=== PATIENT | female | born 1955 | race Caucasian/White ===

== ENCOUNTER 2023-02-26 18:45 | Inpatient (IN) | payer MEDICARE, OTHER ==
[~2023-02-26] VITALS: Ht 167.6 cm; Wt 68.9 kg
[2023-02-26] MEDS ORDERED: TRAZ-257 PO (19:10)
[2023-02-26] MEDS ORDERED: PROP10TA10 PO (19:10)
[2023-02-26] MEDS ORDERED: MELA3TAB41 PO (19:10)
[2023-02-26] MEDS ORDERED: MINE133E RC (19:10)
[2023-02-26] MEDS ORDERED: BREX2TAB PO (19:10)
[2023-02-26] MEDS ORDERED: ACET-3117 PO (19:10)
[2023-02-26] MEDS ORDERED: BISA10SU61 RC (19:10)
[2023-02-26] MEDS ORDERED: LORA0.5T48 PO (19:10)
[2023-02-26] MEDS ORDERED: MAGN400O6 PO (19:10)
[2023-02-26] MEDS ORDERED: DIVA500T2 PO (19:10)
[2023-02-26] MEDS ORDERED: QUET25TA PO (19:10)
[2023-02-26] MEDS ORDERED: MAG30ORA PO (19:10)
[2023-02-26] MEDS ORDERED: POLY119P2 PO (19:10)
[2023-02-26] MEDS ORDERED: DIAZ2TAB PO (19:10)
[2023-02-26 19:38] LABS: BASOPHILS # (AUTO) 0.2 K/UL (0.0-0.2); BASOPHILS % (AUTO) 2.7 % (0.0-2.0); EOSINOPHILS # (AUTO) 0.2 K/uL (0.0-0.7); EOSINOPHILS % (AUTO) 2.3 % (0.0-7.0); HEMOGLOBIN 13.8 g/dL (10.9-14.3); LYMPHOCYTES # (AUTO) 2.2 K/uL (0.8-4.8); LYMPHOCYTES % (AUTO) 32.7 % (20.5-51.5); MEAN CORPUSCULAR HEMOGLOBIN 32.4 uug (24.7-32.8); MEAN CORPUSCULAR HGB CONC 34 g/dL (32.3-35.6); MONOCYTES # (AUTO) 0.5 K/uL (0.1-1.30); MONOCYTES % (AUTO) 7.5 % (0.0-11.0); NEUTROPHILS # (AUTO) 3.7 K/uL (1.8-8.9); NEUTROPHILS % (AUTO) 54.8 % (38.5-71.5); PLATELET COUNT (AUTO) 260 K/uL (179-408); RED BLOOD CELL COUNT(AUTO) 4.27 MIL/uL (3.63-4.92); RED CELL DISTRIBUTION WIDTH 13.1 % (12.3-17.7); WHITE BLOOD COUNT (AUTO) 6.8 K/uL (3.8-11.8)
[2023-02-26 19:43] LABS: DIFFERENTIAL COMMENT 1
[2023-02-26 19:46] LABS: CALCIUM 8.9 mg/dL (8.5-10.1); CARBON DIOXIDE 32 mmol/L (21-32); CHLORIDE 107 mmol/L (98-107); CREATININE 0.9 mg/dL (0.6-1.3); GLUCOSE 82 mg/dL (74-106); POTASSIUM 3.8 mmol/L (3.5-5.1); SODIUM SERUM 145 mmol/L (136-145); UREA NITROGEN, BLOOD 20 mg/dL (7-18)
[2023-02-26 19:49] LABS: ETHANOL < 3 MG/DL (0-10)
[2023-02-26 19:55] LABS: ALANINE AMINOTRANSFERASE 27 U/L (14-59); ALBUMIN 3.2 g/dL (3.4-5.0); ALKALINE PHOSPHATASE 61 U/L (50-136); ASPARTATE AMINOTRANSFERASE 36 U/L (15-37); BILIRUBIN,DIRECT 0.1 mg/dL (0.0-0.2); BILIRUBIN,TOTAL 0.2 mg/dL (0.2-1.0); TOTAL PROTEIN, SERUM 7.2 g/dL (6.4-8.2)
[2023-02-26 19:56] LABS: ACETAMINOPHEN < 2.0 ug/mL (10-30)
[2023-02-26 19:57] LABS: AMMONIA < 10 umol/L (11-32)
[2023-02-26 20:00] LABS: THYROID STIMULATING HORMONE 2.467 mIU/mL (0.358-3.740)
[2023-02-26] MEDS ORDERED: ASPIRIN 81 MG TAB.CHEW PO ONE (20:00)
[2023-02-26] MEDS ORDERED: NITROGLYCERIN OINT 1 GM PACKET TP ONE ×2 (20:00→20:13)
[2023-02-26] MEDS ORDERED: ASPIRIN 81 MG TAB.CHEW ONE (20:13)
[2023-02-26] MEDS: QUETIAPINE FUMARATE 25 MG TABLET PO SCH (20:45)
[2023-02-26] MEDS ORDERED: MAG HYDROX/AL HYDROX/SIMETH 30 ML LIQUID UDC PO PRN (20:45)
[2023-02-26] MEDS ORDERED: MAGNESIUM HYDROXIDE 30 ML LIQUID UDC PO PRN (20:45)
[2023-02-26] MEDS ORDERED: MINERAL OIL FLEET ENEMA 133 ML BOTTLE RC PRN (20:45)
[2023-02-26] MEDS ORDERED: BISACODYL 10 MG SUPP.RECT RC PRN (20:45)
[2023-02-26] MEDS: MELATONIN 3 MG TABLET PO SCH (21:00)
[2023-02-26] MEDS ORDERED: BREXPIPRAZOLE 2 MG PO SCH (21:00)
[2023-02-26] MEDS: TRAZODONE 100 MG TABLET PO SCH (21:00)
[2023-02-26] MEDS ORDERED: OLANZAPINE 5 MG TABLET ONE (22:28)
[2023-02-26] MEDS ORDERED: OLANZAPINE 5 MG TABLET PO ONE (22:30)
[2023-02-27 00:20] VITALS: BP 110/58; TEMP 98; O2SAT 99
[2023-02-27] MEDS ORDERED: ACETAMINOPHEN 325 MG TABLET PO PRN (00:45)
[2023-02-27] MEDS: QUETIAPINE FUMARATE 25 MG TABLET PO SCH ×3 (01:51→16:38)
[2023-02-27] MEDS: TRAZODONE 100 MG TABLET PO SCH ×3 (01:51→21:52)
[2023-02-27] MEDS: MELATONIN 3 MG TABLET PO SCH ×3 (01:52→21:52)
[2023-02-27 04:00] VITALS: BP 152/49; TEMP 98.4; O2SAT 94
[2023-02-27] MEDS: PANTOPRAZOLE SODIUM 40 MG TABLET.DR PO SCH (06:48)
[2023-02-27 07:36] LABS: BASOPHILS # (AUTO) 0.1 K/UL (0.0-0.2); BASOPHILS % (AUTO) 0.8 % (0.0-2.0); EOSINOPHILS # (AUTO) 0.1 K/uL (0.0-0.7); EOSINOPHILS % (AUTO) 1.9 % (0.0-7.0); HEMATOCRIT 39.6 % (31.2-41.9); HEMOGLOBIN 13.5 g/dL (10.9-14.3); LYMPHOCYTES # (AUTO) 2.6 K/uL (0.8-4.8); LYMPHOCYTES % (AUTO) 34.9 % (20.5-51.5); MEAN CORPUSCULAR HEMOGLOBIN 32.4 uug (24.7-32.8); MEAN CORPUSCULAR HGB CONC 34 g/dL (32.3-35.6); MEAN CORPUSCULAR VOLUME 95.2 fL (75.5-95.3); MONOCYTES # (AUTO) 0.7 K/uL (0.1-1.30); NEUTROPHILS # (AUTO) 3.9 K/uL (1.8-8.9); NEUTROPHILS % (AUTO) 52.4 % (38.5-71.5); PLATELET COUNT (AUTO) 254 K/uL (179-408); RED BLOOD CELL COUNT(AUTO) 4.17 MIL/uL (3.63-4.92); RED CELL DISTRIBUTION WIDTH 13.3 % (12.3-17.7); WHITE BLOOD COUNT (AUTO) 7.4 K/uL (3.8-11.8)
[2023-02-27 07:57] LABS: DIFFERENTIAL COMMENT 1
[2023-02-27] MEDS: DIVALPROEX 500 MG TABLET.DR PO SCH ×2 (08:12→16:38)
[2023-02-27] MEDS: ASPIRIN EC 81 MG TABLET.DR PO SCH (08:12)
[2023-02-27] MEDS: DIAZEPAM 2 MG TABLET PO SCH ×2 (08:15→16:38)
[2023-02-27] MEDS: ENOXAPARIN SODIUM 40 MG/0.4 ML DISP.SYRIN SQ SCH (08:15)
[2023-02-27 08:31] LABS: BILIRUBIN,TOTAL 0.3 mg/dL (0.2-1.0); CALCIUM 9.5 mg/dL (8.5-10.1); CREATININE 0.9 mg/dL (0.6-1.3); MAGNESIUM 2.4 mg/dL (1.8-2.4); PHOSPHOROUS 3.4 mg/dL (2.5-4.9); POTASSIUM 3.9 mmol/L (3.5-5.1); TOTAL PROTEIN, SERUM 6.6 g/dL (6.4-8.2)
[2023-02-27 11:14] VITALS: BP 109/50; TEMP 98.3; O2SAT 97
[2023-02-27] MEDS: LORAZEPAM 0.5 MG TABLET PO PRN ×2 (14:44→22:53)
[2023-02-27 15:51] VITALS: BP 140/74; TEMP 98.3; O2SAT 97
[2023-02-27 20:25] VITALS: BP 144/85; TEMP 98.3; O2SAT 97
[2023-02-28] MEDS: PANTOPRAZOLE SODIUM 40 MG TABLET.DR PO SCH (06:20)
[2023-02-28] MEDS: ASPIRIN EC 81 MG TABLET.DR PO SCH (08:10)
[2023-02-28] MEDS: DIVALPROEX 500 MG TABLET.DR PO SCH (08:10)
[2023-02-28] MEDS: ENOXAPARIN SODIUM 40 MG/0.4 ML DISP.SYRIN SQ SCH (08:11)
[2023-02-28] MEDS: QUETIAPINE FUMARATE 25 MG TABLET PO SCH ×2 (09:00→12:27)
[2023-02-28 12:29] VITALS: BP 118/56; TEMP 97.4; O2SAT 94
== END 2023-02-28 14:13 | DRG 280 ==
LOC: ER 18:49 → TELE3 22:00
PROVIDERS: ADMIT Internal Medicine; ATTEND Internal Medicine
DX: I21.A1 Myocardial infarction type 2 (principal); G93.41 Metabolic encephalopathy; F03.911 Unspecified dementia, unspecified severity, with agitation; F03.918 Unspecified dementia, unspecified severity, with other behavioral disturbance; F03.93 Unspecified dementia, unspecified severity, with mood disturbance; F20.9 Schizophrenia, unspecified; M79.7 Fibromyalgia; F29 Unspecified psychosis not due to a substance or known physiological condition; N30.10 Interstitial cystitis (chronic) without hematuria; Z66 Do not resuscitate; F31.9 Bipolar disorder, unspecified; G47.00 Insomnia, unspecified; F80.9 Developmental disorder of speech and language, unspecified
CPT/HCPCS: 36415; 70450; 71045; 83735; 84100; 84443; 84484; 85025; 93005; 93307; C1758; G0378; G0480; J1650

== ENCOUNTER 2023-02-28 15:03 | Inpatient (IN) | payer MEDICARE, OTHER ==
[~2023-02-28] VITALS: Ht 167.6 cm; Wt 67.1 kg
[~2023-02-28 15:03] MED LIST: ACET-3117 PO; BISA10SU61 RC; BREX2TAB PO; DIAZ2TAB PO; DIVA500T2 PO; LORA0.5T48 PO; MAG30ORA PO; MAGN400O6 PO; MELA3TAB41 PO; MINE133E RC; POLY119P2 PO; PROP10TA10 PO; QUET25TA PO; TRAZ-257 PO
[2023-02-28] MEDS ORDERED: MAGNESIUM HYDROXIDE 30 ML LIQUID UDC PO PRN (17:45)
[2023-02-28] MEDS ORDERED: LORAZEPAM 0.5 MG TABLET PO PRN ×2 (17:45→23:45)
[2023-02-28] MEDS ORDERED: MAG HYDROX/AL HYDROX/SIMETH 30 ML LIQUID UDC PO PRN (17:45)
[2023-02-28 18:09] VITALS: BP 105/72; TEMP 98; O2SAT 96
[2023-02-28 20:00] VITALS: BP 129/84; O2SAT 96
[2023-02-28] MEDS: LORAZEPAM 1 MG TABLET PO PRN (20:56)
[2023-02-28] MEDS: ZOLPIDEM 5 MG TABLET PO PRN (22:44)
[2023-03-01 08:00] VITALS: BP 100/56; TEMP 98.2; O2SAT 96
[2023-03-01 08:29] LABS: ALBUMIN 3.2 g/dL (3.4-5.0); BILIRUBIN,TOTAL 0.5 mg/dL (0.2-1.0); CALCIUM 9.5 mg/dL (8.5-10.1); POTASSIUM 4.4 mmol/L (3.5-5.1); TOTAL PROTEIN, SERUM 7.1 g/dL (6.4-8.2)
[2023-03-01] MEDS: DIVALPROEX SPRINKLE 125 MG CAP.SPRINK PO SCH (11:07)
[2023-03-01] MEDS: QUETIAPINE FUMARATE 25 MG TABLET PO SCH (11:08)
[2023-03-01 15:29] VITALS: BP 123/85; TEMP 97.8; O2SAT 96
[2023-03-01 20:00] VITALS: BP 128/84; TEMP 98; O2SAT 94
[2023-03-01] MEDS ORDERED: POLYETHYLENE GLYCOL 3350 238 GM POWDER PO PRN (20:00)
[2023-03-01] MEDS: TRAZODONE 50 MG TABLET PO SCH (20:21)
[2023-03-01] MEDS ORDERED: BREXPIPRAZOLE 2 MG PO SCH (21:00)
[2023-03-02] MEDS ORDERED: MIRALAX 17 GM POWD.PACK PO PRN (05:30)
[2023-03-02 08:51] VITALS: BP 118/70; TEMP 98; O2SAT 96
[2023-03-02] MEDS: PROPRANOLOL HCL 10 MG TABLET PO SCH (09:25)
[2023-03-02 15:25] VITALS: BP 105/68; TEMP 98; O2SAT 96
[2023-03-02] MEDS ORDERED: MELATONIN 3 MG TABLET PO SCH ×2 (18:00→21:00)
[2023-03-02 20:00] VITALS: BP 98/75; TEMP 97.8; O2SAT 96
[2023-03-03 07:44] VITALS: BP 106/68; TEMP 97.7; O2SAT 98
[2023-03-03 16:11] VITALS: BP 150/86; TEMP 97.9; O2SAT 97
[2023-03-04 07:53] VITALS: BP 97/59; TEMP 97.9; O2SAT 97
[2023-03-04] MEDS: NICOTINE 21 MG/24HR PATCH TD SCH (08:25)
[2023-03-04] MEDS: ACETAMINOPHEN 325 MG TABLET PO PRN (09:31)
[2023-03-04 16:04] VITALS: BP 93/53; TEMP 98; O2SAT 97
[2023-03-04 20:00] VITALS: BP 112/68; TEMP 98.8; O2SAT 96
[2023-03-05 07:50] VITALS: BP 126/73; TEMP 97.9; O2SAT 98
[2023-03-05] MEDS: HYDROXYZINE PAMOATE 25 MG CAPSULE PO PRN (08:50)
[2023-03-05] MEDS: GABAPENTIN 100 MG CAPSULE PO SCH (08:50)
[2023-03-05 16:02] VITALS: BP 136/72; TEMP 98; O2SAT 97
[2023-03-05] MEDS: LORAZEPAM 1 MG TABLET PO PRN (19:50)
[2023-03-05 20:00] VITALS: BP 120/61; TEMP 98.1; O2SAT 95
[2023-03-06 07:48] VITALS: BP 125/93; TEMP 98; O2SAT 98
[2023-03-06] MEDS: QUETIAPINE FUMARATE 25 MG TABLET PO SCH ×2 (08:49→21:31)
[2023-03-06 15:11] VITALS: BP 100/52; TEMP 98.8; O2SAT 98
[2023-03-06 20:00] VITALS: BP 119/74; TEMP 98.4; O2SAT 97
[2023-03-06] MEDS: TRAZODONE 100 MG TABLET PO SCH (21:31)
[2023-03-07 07:56] VITALS: BP 129/61; TEMP 98.2; O2SAT 98
[2023-03-07 15:07] VITALS: BP 109/68; TEMP 98; O2SAT 96
[2023-03-07 20:10] VITALS: BP 114/75; TEMP 98.2; O2SAT 95
[2023-03-08 08:17] VITALS: BP 109/65; TEMP 98; O2SAT 93
[2023-03-08 15:32] VITALS: BP 130/72; TEMP 98; O2SAT 94
[2023-03-08 19:55] VITALS: BP 105/57; TEMP 97.9; O2SAT 96
[2023-03-09 08:12] VITALS: BP 106/61; TEMP 98.2; O2SAT 98
[2023-03-09] MEDS: GABAPENTIN 100 MG CAPSULE PO ONE (09:24)
[2023-03-09] MEDS: GABAPENTIN 100 MG CAPSULE PO SCH (13:35)
[2023-03-09 15:29] VITALS: BP 100/62; TEMP 98; O2SAT 98
[2023-03-09 20:01] VITALS: BP 122/66; TEMP 98.1; O2SAT 96
[2023-03-10 07:42] VITALS: BP 93/52; TEMP 98; O2SAT 97
[2023-03-10] MEDS: NICOTINE 14 MG/24HR PATCH TD SCH (08:53)
[2023-03-10 09:30] LABS: BASOPHILS # (AUTO) 0.1 K/UL (0.0-0.2); BASOPHILS % (AUTO) 0.8 % (0.0-2.0); EOSINOPHILS # (AUTO) 0.1 K/uL (0.0-0.7); EOSINOPHILS % (AUTO) 0.9 % (0.0-7.0); HEMATOCRIT 40.8 % (31.2-41.9); HEMOGLOBIN 13.8 g/dL (10.9-14.3); LYMPHOCYTES # (AUTO) 1.9 K/uL (0.8-4.8); LYMPHOCYTES % (AUTO) 24.6 % (20.5-51.5); MEAN CORPUSCULAR HEMOGLOBIN 32.6 uug (24.7-32.8); MEAN CORPUSCULAR HGB CONC 34 g/dL (32.3-35.6); MEAN CORPUSCULAR VOLUME 96.3 fL (75.5-95.3); MONOCYTES # (AUTO) 0.5 K/uL (0.1-1.30); MONOCYTES % (AUTO) 6.3 % (0.0-11.0); NEUTROPHILS # (AUTO) 5.2 K/uL (1.8-8.9); NEUTROPHILS % (AUTO) 67.4 % (38.5-71.5); PLATELET COUNT (AUTO) 254 K/uL (179-408); RED BLOOD CELL COUNT(AUTO) 4.23 MIL/uL (3.63-4.92); RED CELL DISTRIBUTION WIDTH 13.1 % (12.3-17.7); WHITE BLOOD COUNT (AUTO) 7.7 K/uL (3.8-11.8)
[2023-03-10 09:31] LABS: DIFFERENTIAL COMMENT 1
[2023-03-10 09:49] LABS: ALBUMIN 3.1 g/dL (3.4-5.0); BILIRUBIN,TOTAL 0.5 mg/dL (0.2-1.0); CALCIUM 9.1 mg/dL (8.5-10.1); MAGNESIUM 2.1 mg/dL (1.8-2.4); PHOSPHOROUS 3.7 mg/dL (2.5-4.9); POTASSIUM 3.9 mmol/L (3.5-5.1)
[2023-03-10 14:45] LABS: *BILIRUBIN,URIN NEGATIVE (NEGATIVE); *BLOOD, URINE NEGATIVE (NEGATIVE); *CLARITY,URINE CLEAR (CLEAR); *COLOR,URINE LIGHT YELLOW (YELLOW); *KETONES,URINE NEGATIVE (NEGATIVE); *PROTEIN,URINE NEGATIVE (NEGATIVE); *UROBILINOGEN,URINE 0.2 E.U./dl (NORMAL); LEUKOCYTE ESTERASE ,URINE TRACE (NEGATIVE); NITRITE, URINE NEGATIVE (NEGATIVE); PH,URINE 6.5 (5.0-8.0); UGLUCOSE NEGATIVE (NEGATIVE)
[2023-03-10 15:11] LABS: BACTERIA,URINE FEW /HPF (NONE SEEN); RBC,URINE 0-3 /HPF (0-3); SQUAMOUS EPITHELIAL CELL,UR FEW /HPF (NONE SEEN)
[2023-03-10 16:20] VITALS: BP 120/68; TEMP 98.1; O2SAT 97
[2023-03-10 19:57] VITALS: BP 122/64; TEMP 98.5; O2SAT 96
[2023-03-11 07:33] VITALS: BP 155/68; TEMP 98.1; O2SAT 97
[2023-03-11] MEDS: MINERAL OIL FLEET ENEMA 133 ML BOTTLE RC PRN (10:00)
[2023-03-11 16:11] VITALS: BP 116/67; TEMP 98; O2SAT 97
[2023-03-11 19:41] VITALS: BP 126/60; TEMP 98.1; O2SAT 96
[2023-03-12 07:45] VITALS: BP 120/68; TEMP 97.8; O2SAT 98
[2023-03-12 16:07] VITALS: BP 114/55; TEMP 97.9; O2SAT 97
[2023-03-12 19:57] VITALS: BP 153/72; TEMP 97.9; O2SAT 98
[2023-03-13 07:30] VITALS: BP 124/74; TEMP 97.8; O2SAT 96
[2023-03-13 15:05] VITALS: BP 100/63; TEMP 98; O2SAT 96
[2023-03-13 19:52] VITALS: BP 127/66; TEMP 98.1; O2SAT 98
[2023-03-14 07:30] VITALS: BP 115/64; TEMP 97.8; O2SAT 96
[2023-03-14] MEDS: GLUCERNA SHAKE 237 ML CAN PO SCH (08:43)
[2023-03-14 09:16] VITALS: BP 124/74; TEMP 97.8; O2SAT 96
[2023-03-14 15:32] VITALS: BP 128/63; TEMP 98; O2SAT 98
== END 2023-03-14 16:45 | DRG 885 ==
LOC: GPS 15:03
PROVIDERS: ADMIT Psychiatry & Neurology Psychiatry; ATTEND Internal Medicine
DX: F29 Unspecified psychosis not due to a substance or known physiological condition (principal); G93.41 Metabolic encephalopathy; I21.A1 Myocardial infarction type 2; F03.94 Unspecified dementia, unspecified severity, with anxiety; F03.918 Unspecified dementia, unspecified severity, with other behavioral disturbance; F25.9 Schizoaffective disorder, unspecified; F31.9 Bipolar disorder, unspecified; I10 Essential (primary) hypertension; J44.9 Chronic obstructive pulmonary disease, unspecified; Z79.899 Other long term (current) drug therapy; Z87.891 Personal history of nicotine dependence; M79.7 Fibromyalgia; G31.9 Degenerative disease of nervous system, unspecified; I51.89 Other ill-defined heart diseases
CPT/HCPCS: 36415; 80164; 83735; 84100; 85025